=== PATIENT | female | born 1985 | race Caucasian/White ===

== ENCOUNTER 2016-10-06 14:14 | Day surgery (SDC) | payer BC ==
[~2016-10-06 14:14] MED LIST: DIPRIVAN 200 MG/20 ML IV ONE; Kenalog-40 IM ONE; Lactated Ringers 1,000 ML IV ONE; Lactated Ringers 1,000 ML IV SCH; Sensorcaine 0.25% 10 ML IJ ONE
[2016-10-06 15:50] VITALS: BP 121/77; PULSE 86; O2SAT 93
[2016-10-06] MEDS ORDERED: XYLOCAINE 1% HCL 20 ML MDV ONE (17:01)
--- NOTE | 2016-10-06 19:21 | XRAY ---
Indication: Right SI injection. Intraoperative fluoroscopy was provided for 16 seconds. 3 digital spot images submitted for interpretation demonstrates posterior spinal needle with the tip projecting over the right SI joint superiorly. Small amount of contrast injected for needle tip placement. Correlate with intraoperative findings/report.
--- NOTE | 2016-10-07 15:13 | XRAY ---
16 seconds fluoroscopy time in surgery for right SI joint injection.
== END 2016-10-06 18:03 | disposition home or self-care (01) ==
LOC: SDC-PAIN 14:14
PROVIDERS: ATTEND Pain Medicine Interventional Pain Medicine
DX: M46.1 Sacroiliitis, not elsewhere classified (principal); E11.40 Type 2 diabetes mellitus with diabetic neuropathy, unspecified; C54.1 Malignant neoplasm of endometrium; Z79.891 Long term (current) use of opiate analgesic
CPT/HCPCS: 01992; 27096; 72020; 77003; J2704; J3301; Q9967

== ENCOUNTER 2018-10-18 07:51 | Day surgery (SDC) | payer BC ==
[2018-10-18] MEDS ORDERED: DIPRIVAN 200 MG/20 ML IV ONE (07:52)
[2018-10-18] MEDS ORDERED: Depo-Medrol 40 MG/ML IM ONE (07:52)
[2018-10-18] MEDS ORDERED: LIDOCAINE HCL 2% 100 MG/5 ML IJ ONE (07:52)
--- NOTE | 2018-10-18 10:25 | XRAY ---
Indication: L4-S1 MBB. Intraoperative fluoroscopy was provided for 17 seconds. Single digital spot image submitted for interpretation demonstrates posterior spinal needle tips projecting over the expected course of the left and right L4-S1 nerve roots. Correlate with intraoperative findings/report.
--- NOTE | 2018-10-18 10:28 | XRAY ---
17 seconds fluoroscopy time in surgery for L4-S1 MBB.
[2018-10-18] MEDS ORDERED: Lactated Ringers 1,000 ML IV ONE (11:28)
== END 2018-10-18 09:37 | disposition home or self-care (01) ==
LOC: SDC-PAIN 07:51
PROVIDERS: ATTEND Psychiatry & Neurology Pain Medicine
DX: M47.816 Spondylosis without myelopathy or radiculopathy, lumbar region (principal); M47.819 Spondylosis without myelopathy or radiculopathy, site unspecified; E11.9 Type 2 diabetes mellitus without complications; I10 Essential (primary) hypertension; Z79.899 Other long term (current) drug therapy
CPT/HCPCS: 64493; 64494; 72020; 77002; 82962; J1030; J2704

== ENCOUNTER 2018-11-20 19:09 | Emergency (ER) | payer BC ==
[2018-11-20] MEDS ORDERED: Sodium Chloride 0.9% 1000 ML 1,000 ML IV STA (19:57)
--- NOTE | 2018-11-20 19:57 | ERPHSYRPT ---
- History of Present Illness Time Seen by Provider: 11/20/18 19:50 Historian: patient Exam Limitations: no limitations Patient Subjective Stated Complaint: pt states she had sudden onset of pain in her mid abdomen. denies nausea or vomiting Triage Nursing Assessment: pt alert and oriented, asnwers questions approp. pt ambulatoryw ith steady gait noted. respirations nonlabored with lungs cta. skin pink warm and dry. respirations nonlabored with lungs cta. abd soft, pt reports tenderness to epigastric area with light palpation. bowel sounds present x4 quads. Physician History: 33 y/o white female presents with sudden onset of subxiphoid, vertically oriented localized abd pain. occurred approx 1 hour airline captain. did not take any medication for the pain. pt has never had this before. pt states she had never had prior abd surgeries. denies n/v/d. Timing/Duration: today Activities at Onset: none Quality: aching Abdominal Pain Onset Location: epigastric Pain Radiation: no radiation Severity of Pain-Max: mild Severity of Pain-Current: mild Modifying Factors: Improves With: nothing Associated Symptoms: denies symptoms Allergies/Adverse Reactions: No Known Drug Allergies Allergy (Verified 11/20/18 19:50) Home Medications: Metformin HCl 500 mg [Glucophage 500 MG] 500 mg PO BID 01/07/15 [History] Pregabalin [Lyrica 150Mg] 150 mg PO DAILY 10/06/16 [History] Duloxetine HCl [Cymbalta] 90 mg PO DAILY 10/24/17 [History] Lisinopril 10 mg [Zestril 10 MG] 10 mg PO DAILY 12/26/17 [History] Rosuvastatin Calcium [Crestor] 10 mg PO DAILY 12/26/17 [History] Temazepam 15 mg [Restoril 15 MG] 15 mg PO HS 12/26/17 [History] Cyclobenzaprine HCl [Flexeril] 5 mg PO Q8HPRN PRN 11/20/18 [History] Dapagliflozin Propanediol [Farxiga] 10 mg PO DAILY 11/20/18 [History] Liraglutide [Victoza 2-Micheal] 1.2 mg SQ DAILY 11/20/18 [History] Metoprolol Succinate 50 mg [Toprol Xl 50 MG] 50 mg PO DAILY 11/20/18 [ History] Omeprazole 20 mg PO DAILY 11/20/18 [History] Oxycodone HCl/Acetaminophen [Percocet 10-325 mg Tablet] 1 each PO Q8H PRN PRN [History] Semaglutide [Ozempic] 1 mg SQ UD 11/20/18 [History] Sitagliptin Phosphate [Januvia] 100 mg PO DAILY 11/20/18 [History] Zolpidem Tartrate 5 mg [Ambien 5 MG Tablet] 5 mg PO HS 11/20/18 [History] Hx Tetanus, Diphtheria Vaccination/Date Given: Yes Hx Influenza Vaccination/Date Given: Yes Hx Pneumococcal Vaccination/Date Given: No Immunizations Up to Date: Yes - Review of Systems Constitutional: No Symptoms Eyes: No Symptoms Ears, Nose, & Throat: No Symptoms Respiratory: No Symptoms Cardiac: No Symptoms Abdominal/Gastrointestinal: Abdominal Pain (subxiphoid), No Nausea, No Vomiting , No Diarrhea Genitourinary Symptoms: No Symptoms, No Dysuria, No Frequency, No Hematuria Musculoskeletal: No Symptoms Skin: No Symptoms Neurological: No Symptoms Psychological: No Symptoms Endocrine: No Symptoms Hematologic/Lymphatic: No Symptoms Immunological/Allergic: No Symptoms All Other Systems: Reviewed and Negative - Past Medical History Pertinent Past Medical History: Yes Neurological History: Peripheral Neuropathy ENT History: No Pertinent History Cardiac History: High Cholesterol, Hypertension Respiratory History: No Pertinent History Endocrine Medical History: Diabetes Type II Musculoskeletal History: Arthritis GI Medical History: Other History: No Pertinent History Psycho-Social History: No Pertinent History Female Reproductive Disorders: No Pertinent History Other Medical History: 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 uterine ablation - Social History Smoking Status: Never smoker Exposure to second hand smoke: No Drug Use: none Patient Lives Alone: No - Female History Hx Last Menstrual Period: ablation Hx Now: No - Nursing Vital Signs Nursing Vital Signs: Initial Vital Signs Temperature 97.4 F 11/20/18 19:39 Respiratory Rate 18 11/20/18 19:39 Pain Scale Pain Intensity 8 - Physical Exam General Appearance: no apparent distress, alert, anxiety Eye Exam: PERRL/EOMI Ears, Nose, Throat Exam: normal ENT inspection, moist mucous membranes Neck Exam: normal inspection, non-tender, supple, full range of motion Respiratory Exam: normal breath sounds, lungs clear, airway intact, No chest tenderness, No respiratory distress, No accessory muscle use, No rhonchi, No wheezing, No stridor Cardiovascular Exam: regular rate/rhythm, normal heart sounds, normal peripheral pulses Gastrointestinal/Abdomen Exam: soft, normal bowel sounds, tenderness ( subxiphoid vertically oriented, localized), No guarding, No rebound Pelvic Exam: not done Back Exam: normal inspection, normal range of motion, No CVA tenderness, No vertebral tenderness Extremity Exam: normal inspection, normal range of motion, pelvis stable Neurologic Exam: alert, oriented x 3, cooperative, 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, normal mood/affect Skin Exam: normal color, warm, dry Lymphatic Exam: No adenopathy SpO2 Interpretation: normal O2 Delivery: Room Air - Course Nursing assessment & vital signs reviewed: Yes Ordered Tests: Active Orders 24 hr Category Date Time Status Clean Catch Urine Specimen STAT Care 11/20/18 19:57 Active IV Insertion STAT Care 11/20/18 19:57 Active AMYLASE Stat Lab 11/20/18 19:45 Completed CBC W DIFF Stat Lab 11/20/18 19:45 Completed CMP Stat Lab 11/20/18 19:45 Completed HCG,QUALITATIVE URINE Stat Lab 11/20/18 19:40 Completed LIPASE Stat Lab 11/20/18 19:45 Completed Lactic Acid Stat Lab 11/20/18 19:57 Completed UA W/RFX UR CULTURE Stat Lab 11/20/18 19:40 Completed Medication Summary Generic Name Dose Route Start Last Admin Trade Name Freq PRN Reason Stop Dose Admin Sodium Chloride 1,000 mls @ 999 mls/hr 11/20/18 19:57 11/20/18 20:04 Sodium Chloride 0.9% 1000 Ml IV 11/20/18 20:57 999 mls/hr .Q1H1M STA Administration Discontinued Medications Generic Name Dose Route Start Last Admin Trade Name Freq PRN Reason Stop Dose Admin Sodium Chloride Confirm 11/20/18 20:02 Sodium Chloride 0.9% 1000 Ml Administered 11/20/18 20:03 Dose 1,000 mls @ ud .ROUTE .STK-MED ONE Lab/Rad Data: Laboratory Result Diagrams 11/20/18 19:45 11/20/18 19:45 Laboratory Results 11/20/18 11/20/18 11/20/18 Range/Units 19:57 19:45 19:45 WBC 9.7 (4.0-10.5) K/mm3 RBC 4.84 (4.1-5.4) M/mm3 Hgb 13.3 (12.0-16.0) gm/dl Hct 40.6 (35-47) % MCV 83.9 (78-100) fl MCH 27.5 (26-32) pg MCHC 32.8 (32-36) g/dl RDW 14.3 H (11.5-14.0) % Plt Count 267 (150-450) K/mm3 MPV 10.9 H (6-9.5) fl Gran % 52.8 (36.0-66.0) % Eos # (Auto) 0.16 (0-0.5) Absolute Lymphs (auto) 3.66 (1.0-4.6) Absolute Monos (auto) 0.72 (0.0-1.3) Lymphocytes % 37.8 (24.0-44.0) % Monocytes % 7.4 (0.0-12.0) % Eosinophils % 1.7 (0.00-5.0) % Basophils % 0.3 (0.0-0.4) % Absolute Granulocytes 5.12 (1.4-6.9) Basophils # 0.03 (0-0.4) Sodium 134 L (137-145) mmol/L Potassium 4.1 (3.5-5.1) mmol/L Chloride 97 L (98-107) mmol/L Carbon Dioxide 29 (22-30) mmol/L Anion Gap 12.4 (5-15) MEQ/L BUN 16 (7-17) mg/dL Creatinine 0.70 (0.52-1.04) mg/dL Estimated GFR > 60.0 ML/MIN Glucose 108 H (74-106) mg/dL Lactic Acid 1.5 (0.4-2.0) Calcium 9.8 (8.4-10.2) mg/dL Total Bilirubin 0.50 (0.2-1.3) mg/dL AST 32 (14-36) U/L ALT 46 H (0-35) U/L Alkaline Phosphatase 60 (38-126) U/L Serum Total Protein 7.7 (6.3-8.2) g/dL Albumin 4.3 (3.5-5.0) g/dL Amylase 67 (30-110) U/L Lipase 88 (23-300) U/L Urine Color (YELLOW) Urine Appearance (CLEAR) Urine pH (5-6) Ur Specific [place] (1.005-1.025) Urine Protein (Negative) Urine Ketones (NEGATIVE) Urine Blood (0-5) Naveed/ul Urine Nitrite (NEGATIVE) Urine Bilirubin (NEGATIVE) Urine Urobilinogen (0-1) mg/dL Ur Leukocyte Esterase (NEGATIVE) Urine WBC (Auto) (0-5) /HPF Urine RBC (Auto) (0-2) /HPF U Epithel Cells (Auto) (FEW) /HPF Urine Bacteria (Auto) (NEGATIVE) /HPF Urine Mucus (Auto) (NEGATIVE) /HPF Urine Culture Reflexed (NO) Urine Glucose (NEGATIVE) mg/dL Urine HCG, Qual (Negative) 11/20/18 11/20/18 Range/Units 19:40 19:40 WBC (4.0-10.5) K/mm3 RBC (4.1-5.4) M/mm3 Hgb (12.0-16.0) gm/dl Hct (35-47) % MCV (78-100) fl MCH (26-32) pg MCHC (32-36) g/dl RDW (11.5-14.0) % Plt Count (150-450) K/mm3 MPV (6-9.5) fl Gran % (36.0-66.0) % Eos # (Auto) (0-0.5) Absolute Lymphs (auto) (1.0-4.6) Absolute Monos (auto) (0.0-1.3) Lymphocytes % (24.0-44.0) % Monocytes % (0.0-12.0) % Eosinophils % (0.00-5.0) % Basophils % (0.0-0.4) % Absolute Granulocytes (1.4-6.9) Basophils # (0-0.4) Sodium (137-145) mmol/L Potassium (3.5-5.1) mmol/L Chloride (98-107) mmol/L Carbon Dioxide (22-30) mmol/L Anion Gap (5-15) MEQ/L BUN (7-17) mg/dL Creatinine (0.52-1.04) mg/dL Estimated GFR ML/MIN Glucose (74-106) mg/dL Lactic Acid (0.4-2.0) Calcium (8.4-10.2) mg/dL Total Bilirubin (0.2-1.3) mg/dL AST (14-36) U/L ALT (0-35) U/L Alkaline Phosphatase (38-126) U/L Serum Total Protein (6.3-8.2) g/dL Albumin (3.5-5.0) g/dL Amylase (30-110) U/L Lipase (23-300) U/L Urine Color YELLOW (YELLOW) Urine Appearance SLIGHTLY CLOUDY (CLEAR) Urine pH 6.0 (5-6) Ur Specific [place] 1.027 (1.005-1.025) Urine Protein NEGATIVE (Negative) Urine Ketones NEGATIVE (NEGATIVE) Urine Blood NEGATIVE (0-5) Naveed/ul Urine Nitrite NEGATIVE (NEGATIVE) Urine Bilirubin NEGATIVE (NEGATIVE) Urine Urobilinogen NEGATIVE (0-1) mg/dL Ur Leukocyte Esterase TRACE (NEGATIVE) Urine WBC (Auto) 3-5 (0-5) /HPF Urine RBC (Auto) NONE (0-2) /HPF U Epithel Cells (Auto) RARE (FEW) /HPF Urine Bacteria (Auto) NONE (NEGATIVE) /HPF Urine Mucus (Auto) SLIGHT (NEGATIVE) /HPF Urine Culture Reflexed NO (NO) Urine Glucose >=500 (NEGATIVE) mg/dL Urine HCG, Qual NEGATIVE (Negative) - Progress Progress: unchanged Counseled pt/family regarding: lab results, diagnosis, need for follow-up - Departure Departure Disposition: Home Clinical Impression: UTI (urinary tract infection) Condition: Stable Critical Care Time: No Referrals: HIRA MCKNIGHT MD [Primary Care Provider] - Additional Instructions: drink plenty of fluids. use tylenol and ibuprofen for pain. follow up with primary doctor for persistent symptoms Prescriptions: Cephalexin Mh 500 mg [Keflex 500 mg] 500 mg PO TID #21 capsule
[2018-11-20] MEDS ORDERED: Sodium Chloride 0.9% 1000 ML 1,000 ML ONE (20:02)
[2018-11-20 20:06] LABS: BASOPHIL % 0.3 % (0.0-0.4); Basophil (Absolute #) 0.03 (0-0.4); Eosinophil % 1.7 % (0.00-5.0); Eosinophil (Absolute #) 0.16 (0-0.5); Granulocyte Absolute (ANC) 5.12 (1.4-6.9); Granulocytes % 52.8 % (36.0-66.0); Hematocrit 40.6 % (35-47); Hemoglobin 13.3 gm/dl (12.0-16.0); Lymphocyte (Absolute #) 3.66 (1.0-4.6); Lymphocytes % 37.8 % (24.0-44.0); Mean Cell Volume 83.9 fl (78-100); Mean Corpuscular Hemoglobin 27.5 pg (26-32); Mean Corpuscular Hgb Concent. 32.8 g/dl (32-36); Mean Platelet Volume 10.9 fl (6-9.5); Monocyte (Absolute #) 0.72 (0.0-1.3); Monocytes % 7.4 % (0.0-12.0); Platelet Count 267 K/mm3 (150-450); Red Blood Count 4.84 M/mm3 (4.1-5.4); Red Cell Distribution Width 14.3 % (11.5-14.0); White Blood Count 9.7 K/mm3 (4.0-10.5)
[2018-11-20 20:18] LABS: ALBUMIN 4.3 g/dL (3.5-5.0); ALKALINE PHOSPHATASE 60 U/L (38-126); AMYLASE 67 U/L (30-110); ANION GAP 12.4 MEQ/L (5-15); BLOOD UREA NITROGEN 16 mg/dL (7-17); CHLORIDE 97 mmol/L (98-107); Calcium 9.8 mg/dL (8.4-10.2); Carbon Dioxide 29 mmol/L (22-30); Glucose 108 mg/dL (74-106); LIPASE 88 U/L (23-300); Potassium 4.1 mmol/L (3.5-5.1); SGOT/AST 32 U/L (14-36); SGPT/ALT 46 U/L (0-35); SODIUM 134 mmol/L (137-145); Total Protein 7.7 g/dL (6.3-8.2)
[2018-11-20 20:25] LABS: Appearance SLIGHTLY CLOUDY (CLEAR); Bilirubin NEGATIVE (NEGATIVE); Blood NEGATIVE Ery/ul (0-5); Epithelial Cells RARE /HPF (FEW); Glucose >=500 mg/dL (NEGATIVE); Ketones NEGATIVE (NEGATIVE); Leukocyte Esterase TRACE (NEGATIVE); Mucus SLIGHT /HPF (NEGATIVE); Nitrite NEGATIVE (NEGATIVE); Protein,Urine Dip NEGATIVE (Negative); Specific Gravity 1.027 (1.005-1.025); Urobilinogen NEGATIVE mg/dL (0-1)
[2018-11-20 20:38] VITALS: BP 106/75; PULSE 92; O2SAT 100
[2018-11-20] MEDS ORDERED: KEFLEX 500 MG PO ONE (20:39)
[2018-11-20] MEDS ORDERED: KEFLEX 500 MG ONE (21:10)
== END 2018-11-20 21:27 | disposition home or self-care (01) ==
LOC: ED 19:09
DX: N39.0 Urinary tract infection, site not specified (principal); R10.13 Epigastric pain; I10 Essential (primary) hypertension; E11.9 Type 2 diabetes mellitus without complications; Z79.4 Long term (current) use of insulin; E78.00 Pure hypercholesterolemia, unspecified; G62.9 Polyneuropathy, unspecified; M19.90 Unspecified osteoarthritis, unspecified site; Z79.899 Other long term (current) drug therapy
CPT/HCPCS: 36000; 36415; 80053; 81001; 82150; 83605; 83690; 84703; 85025; 96360; 99284; A9270-GY

== ENCOUNTER 2019-01-31 07:44 | Day surgery (SDC) | payer BC ==
[2019-01-31] MEDS ORDERED: Depo-Medrol 40 MG/ML IM ONE (07:45)
[2019-01-31] MEDS ORDERED: Xylocaine-Mpf 2% 5 Ml Vial IJ ONE (07:45)
[2019-01-31] MEDS ORDERED: DIPRIVAN 200 MG/20 ML IV ONE (09:30)
[2019-01-31] MEDS ORDERED: Ketamine HCl 50 MG/ML ONE (09:32)
--- NOTE | 2019-01-31 10:57 | XRAY ---
Indication: Bilateral T8-T11 MBB. Intraoperative fluoroscopy was provided for 10 seconds. 2 digital spot images submitted for interpretation demonstrates posterior needle tips projecting over the expected course of the left and right T8-T11 nerve roots. Correlate with intraoperative findings/report. Incidental 2 epidural spinal leads present.
--- NOTE | 2019-01-31 10:59 | XRAY ---
10 seconds of fluoroscopy was used in surgery for bilateral T8-T9, T9-T10, and T10-T11 MBB.
[2019-01-31] MEDS ORDERED: Lactated Ringers 1,000 ML IV ONE (13:32)
== END 2019-01-31 10:03 | disposition home or self-care (01) ==
LOC: SDC-PAIN 07:44
PROVIDERS: ATTEND Psychiatry & Neurology Pain Medicine
DX: M47.816 Spondylosis without myelopathy or radiculopathy, lumbar region (principal); E11.9 Type 2 diabetes mellitus without complications; I10 Essential (primary) hypertension; E78.00 Pure hypercholesterolemia, unspecified
CPT/HCPCS: 64490; 64491; 64492; 72020; 77002; 82962; 84703; J1030; J2704

== ENCOUNTER 2019-03-07 08:34 | Day surgery (SDC) | payer BC ==
[2019-03-07] MEDS ORDERED: Marcaine 0.5% SDV 10 ML IJ ONE (08:35)
[2019-03-07] MEDS ORDERED: Depo-Medrol 40 MG/ML IM ONE (08:35)
[2019-03-07] MEDS ORDERED: DIPRIVAN 200 MG/20 ML IV ONE ×2 (10:00→10:04)
[2019-03-07] MEDS ORDERED: Ketamine HCl 50 MG/ML ONE (10:00)
--- NOTE | 2019-03-07 12:14 | XRAY ---
Indication: Bilateral T8-T11 MBB. Intraoperative fluoroscopy was provided for 12 seconds. Single digital spot image submitted for interpretation demonstrates posterior needle tips projecting over the expected course of the left and right T8-T11 nerve roots. Correlate with intraoperative findings/report. Incidental 2 epidural spinal leads.
--- NOTE | 2019-03-07 12:21 | XRAY ---
12 seconds fluoroscopy time in surgery for bilateral T8-T11 MBB.
[2019-03-07] MEDS ORDERED: Lactated Ringers 1,000 ML IV ONE (15:51)
== END 2019-03-07 10:25 | disposition home or self-care (01) ==
LOC: SDC-PAIN 08:34
PROVIDERS: ATTEND Psychiatry & Neurology Pain Medicine
DX: M47.816 Spondylosis without myelopathy or radiculopathy, lumbar region (principal); E11.9 Type 2 diabetes mellitus without complications; I10 Essential (primary) hypertension; E78.00 Pure hypercholesterolemia, unspecified; Z79.899 Other long term (current) drug therapy
CPT/HCPCS: 72020; 77002; 84703; J1030; J2704